=== PATIENT | female | born 1985 | race Caucasian/White ===

== ENCOUNTER 2016-06-17 07:14 | Inpatient (IN) | payer OTHER ==
[~2016-06-17] VITALS: Ht 162.6 cm; Wt 100.0 kg
[~2016-06-17 07:14] MED LIST: ASPIR 8181 M1 PO; ATARAX,VISTARIL50 MG PO; AZITHROMYCIN250 MG PO; FIORICET 50-301 EACH PO; IMITREX6 MG/0.5 M SC; LEXAPRO10 MG PO; MELOXICAM7.5 MG PO; MOTRIN800 MG PO; NICODERM CQ1 EAC1 TD; OXYCODONE HCL10 MG PO; PERCOCET 10/1 TABLET PO; PREDNISONE50 MG PO; PROMETHAZINE HC25 M1 PO; ROXICET 5-3251 EACH PO; TESSALON PERLE100 MG PO; VITAFOL-OB+DHA1 EACH PO; XANAX0.5 MG PO; ZITHROMAX250 MG PO; ZOFRAN ODT4 MG PO
[2016-06-17] MEDS ORDERED: LO-DOSE ASPIRIN81 M2 PO (07:46)
[2016-06-17] MEDS ORDERED: FOLIC ACID0.4 MG PO (07:47)
[2016-06-17] MEDS ORDERED: CLARITIN,ALAVAR10 MG PO (07:47)
[2016-06-17 08:15] VITALS: BP 117/69
[2016-06-17 10:16] LABS: EOSINOPHIL (%) 0.5 % (0-5); EOSINOPHIL COUNT 0.1 K/uL (0-0.3); HEMATOCRIT 32.4 % (36.0-46.0); IMMATURE GRANULOCYTE (%) 1.8 % (0.0-0.7); IMMATURE GRANULOCYTE COUNT 0.3 K/uL; LYMPHOCYTE COUNT 3.1 K/uL (1.0-2.8); MCH 31.1 PG (29.0-34.0); MCV 94.2 FL (83-99); MEAN PLAT.VOLUME 10.8 uM^3 (9.5-12.4); MONOCYTE (%) 7.8 % (3-12); MONOCYTE COUNT 1.1 K/uL (0-0.8); NEUTROPHIL (%) 67.1 % (45-76); NEUTROPHIL COUNT 9.2 K/uL (1.8-6.4); PLATELET COUNT 184 K/uL (156-360); RBC DIS.WIDTH-CV 14.3 % (11.8-14.6); RBC DIS.WIDTH-SD 48.5 % (39-53); RED BLOOD COUNT 3.44 M/uL (3.80-5.20); WHITE BLOOD COUNT 13.8 K/uL (4.1-10.2)
[2016-06-17 10:32] LABS: ANION GAP 9 MEQ/L (2-14); CHLORIDE 107 MEQ/L (99-109); POTASSIUM 4.6 MEQ/L (3.7-5.4); SAMPLE HEMOLYSIS CHECK 0; SAMPLE ICTERIC CHECK 0; SAMPLE LIPEMIA CHECK 0; SODIUM 136 MEQ/L (136-147)
[2016-06-17 10:38] LABS: GFR ESTIMATE (CALCULATED) > 59 mL/min/; GLUCOSE 92 mg/dL (70-99); UREA NITROGEN (BUN) 8 mg/dL (9-23)
[2016-06-17] MEDS ORDERED: IBUPROFEN800 MG PO (12:36)
[2016-06-17] MEDS ORDERED: ENDOCET 5-3251 EACH PO (12:37)
[2016-06-17] MEDS ORDERED: ESCITALOPRAM OX10 MG PO (12:38)
[2016-06-17 15:08] VITALS: BP 128/66
[2016-06-17 17:36] VITALS: BP 121/75
[2016-06-17 19:37] VITALS: BP 131/72
[2016-06-17 23:20] VITALS: BP 124/54
[2016-06-18] VITALS (8 sets, daily range): BP systolic 108–137; BP diastolic 54–81
[2016-06-18 06:35] LABS: EOSINOPHIL (%) 0.3 % (0-5); EOSINOPHIL COUNT 0.1 K/uL (0-0.3); HEMATOCRIT 28.7 % (36.0-46.0); IMMATURE GRANULOCYTE (%) 1.1 % (0.0-0.7); IMMATURE GRANULOCYTE COUNT 0.2 K/uL; LYMPHOCYTE COUNT 3.5 K/uL (1.0-2.8); MCH 30.5 PG (29.0-34.0); MCHC 32.4 G/DL (30.0-36.0); MCV 94.1 FL (83-99); MEAN PLAT.VOLUME 10.4 uM^3 (9.5-12.4); MONOCYTE (%) 4.6 % (3-12); MONOCYTE COUNT 0.8 K/uL (0-0.8); NEUTROPHIL (%) 72.8 % (45-76); NEUTROPHIL COUNT 12.2 K/uL (1.8-6.4); PLATELET COUNT 164 K/uL (156-360); RBC DIS.WIDTH-CV 14.1 % (11.8-14.6); RBC DIS.WIDTH-SD 48.2 % (39-53); RED BLOOD COUNT 3.05 M/uL (3.80-5.20); WHITE BLOOD COUNT 16.8 K/uL (4.1-10.2)
[2016-06-19 05:47] VITALS: BP 123/58
[2016-06-19 08:20] VITALS: BP 127/72
[2016-06-19 14:25] VITALS: BP 127/59
[2016-06-19 23:25] VITALS: BP 125/68
[2016-06-20 07:55] VITALS: BP 127/79
== END 2016-06-20 14:34 | disposition home or self-care (01) | DRG 765 ==
LOC: LDRP-OP 07:14 → 2WEST 07:15 → LDRP-OP 07:16 → 2WEST 09:31 → LDRP-OP 07-25 20:26
PROVIDERS: Obstetrics & Gynecology
PROC: 10D00Z1 Extraction of Products of Conception, Low, Open Approach (ICD-10-PCS; principal; 2016-06-17)
DX: O76 Abnormality in fetal heart rate and rhythm complicating labor and delivery (principal); O99.02 Anemia complicating childbirth; D62 Acute posthemorrhagic anemia; O99.284 Endocrine, nutritional and metabolic diseases complicating childbirth; E72.12 Methylenetetrahydrofolate reductase deficiency; O99.12 Other diseases of the blood and blood-forming organs and certain disorders involving the immune mechanism complicating childbirth; D68.2 Hereditary deficiency of other clotting factors; O99.334 Smoking (tobacco) complicating childbirth; F17.200 Nicotine dependence, unspecified, uncomplicated; O99.214 Obesity complicating childbirth; E66.9 Obesity, unspecified; Z68.38 Body mass index [BMI] 38.0-38.9, adult; O99.344 Other mental disorders complicating childbirth; F32.9 Major depressive disorder, single episode, unspecified; F41.9 Anxiety disorder, unspecified; Z3A.39 39 weeks gestation of pregnancy; Z37.0 Single live birth
CPT/HCPCS: 80048; 85025; 86850; 86900; 86901; 88307; J0330; J0690; J1100; J1170; J1650; J2250; J2274; J2405; J3010; J7120

== ENCOUNTER 2017-07-07 06:42 | Day surgery (SDC) | payer OTHER ==
[~2017-07-07] VITALS: Ht 162.6 cm; Wt 91.9 kg
[~2017-07-07 06:42] MED LIST changes: +BUSPAR10 MG PO; +CLARITIN,ALAVAR10 MG PO; +ENDOCET 5-3251 EACH PO; +ESCITALOPRAM OX10 MG PO; +FLEXERIL10 MG PO; +FOLIC ACID0.4 MG PO; +FOLIC ACID0.8 MG PO; +IBUPROFEN800 MG PO; +LITE COAT ASPI325 M1 PO; +MOBIC7.5 MG PO; +PARAGARD T 3801 EAC1 IY
[2017-07-07 07:17] VITALS: BP 110/64
[2017-07-07] MEDS ORDERED: PROMETHAZINE HC25 M1 PO (10:10)
[2017-07-07] MEDS ORDERED: TRAMADOL HCL50 MG PO (10:10)
[2017-07-07] MEDS ORDERED: COLACE100 MG PO (10:10)
[2017-07-07] MEDS ORDERED: ANUSOL-HC21 GM PR (10:21)
[2017-07-07 11:04] VITALS: BP 125/67
[2017-07-07 11:48] VITALS: BP 104/75
== END 2017-07-07 11:53 | disposition home or self-care (01) ==
LOC: SDC 06:42
DX: D17.23 Benign lipomatous neoplasm of skin and subcutaneous tissue of right leg (principal); K64.4 Residual hemorrhoidal skin tags; K64.9 Unspecified hemorrhoids; D68.51 Activated protein C resistance; E78.5 Hyperlipidemia, unspecified; M51.06 Intervertebral disc disorders with myelopathy, lumbar region; Z79.82 Long term (current) use of aspirin; F17.200 Nicotine dependence, unspecified, uncomplicated; Z80.0 Family history of malignant neoplasm of digestive organs; Z82.5 Family history of asthma and other chronic lower respiratory diseases; Z82.49 Family history of ischemic heart disease and other diseases of the circulatory system; Z84.1 Family history of disorders of kidney and ureter; Z88.5 Allergy status to narcotic agent; Z88.8 Allergy status to other drugs, medicaments and biological substances
CPT/HCPCS: 88304; J0131; J0585; J1100; J1170; J2250; J2405; J2710; J2765; Q0175; S0020; S0074